=== PATIENT | female | born 1990 | race African-American/Black ===

== ENCOUNTER 2025-04-15 17:45 | Emergency (ER) | payer BC ==
[2025-04-15] MEDS ORDERED: Famotidine 20 MG TAB ONE (18:30)
[2025-04-15] MEDS ORDERED: predniSONE 20 MG TAB ONE (18:30)
== END 2025-04-15 18:35 | disposition home or self-care (01) ==
LOC: MADERS 17:45
DX: L25.0 Unspecified contact dermatitis due to cosmetics (principal)
CPT/HCPCS: 99282; J7512